=== PATIENT | female | born 1955 | race Caucasian/White ===

== ENCOUNTER 2016-08-14 09:25 | Day surgery (SDC) | payer SELFPAY ==
--- NOTE | ~2016-08-14 | EGD ---
EGD REPORT [facility] [address] [address] NAME: ODILIA CLAY : [birth year] STATUS : REG [facility]#: [id number] AGE: 61 ADM/REG DATE : 08/14/16 MR#: [id number] REPORT SERV DATE: 08/14/16 DICTATED BY: ROD FUNG DATE: 08/14/16 REPORT STATUS : Draft TRANSCRIBED BY: [facility] DATE: 08/14/16 [facility] Center Patient Name: Odilia Clay Date of : 1955 Attending MD: ROD FUNG MD Procedure Date No Time: 08/14/2016 Procedure: Colonoscopy Indications: Screening for colorectal malignant neoplasm Referring MD: REHANA NAVAS Medicines: as per anesthesia Complications: No immediate complications. Procedure: After I obtained informed consent, the scope was passed under direct vision. Throughout the procedure, the patient's blood pressure, pulse, and oxygen saturations were monitored continuously. The PCF [id number] was introduced through the anus and advanced to the cecum, identified by appendiceal orifice and ileocecal valve. The colonoscopy was performed without difficulty. The patient tolerated the procedure. The quality of the bowel preparation was adequate to identify polyps. Findings: The perianal and digital rectal examinations were normal. A few small and large-mouthed diverticula were found in the sigmoid colon and in the descending colon. Impression: - Diverticulosis in the sigmoid colon and in the descending colon. Recommendation: - Repeat colonoscopy in 10 years for surveillance. Procedure Code(s): --- Professional --- 97736, Colonoscopy, flexible, proximal to splenic flexure; diagnostic, with or without collection of specimen(s) by brushing or washing, with or without colon decompression (separate procedure) Diagnosis Code(s): --- Professional --- K57.30, Diverticulosis of large intestine without perforation or abscess without bleeding Z12.11, Encounter for screening for malignant neoplasm of colon CPT copyright 2013 [employer]. All rights reserved. EGD REPORT [facility] [address] [place] [address] [place] [address] NAME: ODILIA CLAY : [birth year] STATUS : REG [facility] PAT#: [id number] AGE: 61 ADM/REG DATE : 08/14/16 MR#: [id number] REPORT SERV DATE: 08/14/16 DICTATED BY: ROD FUNG DATE: 08/14/16 REPORT STATUS : Draft TRANSCRIBED BY: [employer] DATE: 08/14/16 The codes documented in this report are preliminary and upon scale technician review may be revised to meet current compliance requirements. ROD FUNG MD 08/14/2016 12:57 PM This report has been signed electronically. Number of Addenda: 0 Note Initiated On: 08/14/2016 11:26 AM Scope Withdrawal Time 0 hours 6 minutes 1 second [address] [place] [address]
[~2016-08-14 09:25] MED LIST: AZO STANDARD PO; DIABETA5 PO; FOLIC ACID400 MC1 PO; GLUCPH PO; HYDROCODONE PO; LIPITOR10 PO
== END 2016-08-14 23:59 | disposition home or self-care (01) ==
LOC: DMU 09:25
PROVIDERS: Internal Medicine Gastroenterology
PROC: 0DJD8ZZ Inspection of Lower Intestinal Tract, Via Natural or Artificial Opening Endoscopic (ICD-10-PCS; principal; 2016-08-14 10:00)
DX: Z12.11 Encounter for screening for malignant neoplasm of colon (principal); K57.30 Diverticulosis of large intestine without perforation or abscess without bleeding; J45.909 Unspecified asthma, uncomplicated; E11.9 Type 2 diabetes mellitus without complications; Z98.890 Other specified postprocedural states; Z98.51 Tubal ligation status; Z88.7 Allergy status to serum and vaccine; Z88.8 Allergy status to other drugs, medicaments and biological substances
CPT/HCPCS: 82962